=== PATIENT | female | born 1985 | race Caucasian/White ===

== ENCOUNTER 2016-09-26 20:42 | Emergency (ER) | payer OTHER ==
[~2016-09-26 20:42] MED LIST: ABIL5TAB6 PO; BUSP10TA8 PO; LEXA5SOL PO
[2016-09-26 20:44] VITALS: BP 109/53; PULSE 98; RESP 18; TEMP 98.6; O2SAT 98
== END 2016-09-26 21:39 | disposition left against medical advice (07) ==
LOC: NED 20:42
DX: R52 Pain, unspecified (principal)
CPT/HCPCS: 99281